=== PATIENT | male | born 1995 | race Caucasian/White ===

== ENCOUNTER → 2020-04-12 12:53 | Outpatient (BNVA) | payer OTHER, SELFPAY | PROVIDERS: PCP Pediatrics; Visit Provider Internal Medicine | DX: S93.401A Sprain of unspecified ligament of right ankle, initial encounter (principal); W01.0XXA Fall on same level from slipping, tripping and stumbling without subsequent striking against object, initial encounter | CPT/HCPCS: 73610; 99203 ==

== ENCOUNTER → 2020-04-18 11:20 | Outpatient (BNVA) | payer OTHER, SELFPAY | PROVIDERS: PCP Pediatrics; Visit Provider Internal Medicine | DX: S93.401A Sprain of unspecified ligament of right ankle, initial encounter (principal); W01.0XXA Fall on same level from slipping, tripping and stumbling without subsequent striking against object, initial encounter | CPT/HCPCS: 99213 ==

== ENCOUNTER → 2020-04-25 10:55 | Outpatient (BNVA) | payer OTHER, SELFPAY | PROVIDERS: PCP Pediatrics; Visit Provider Internal Medicine | DX: S93.401D Sprain of unspecified ligament of right ankle, subsequent encounter (principal); X58.XXXD Exposure to other specified factors, subsequent encounter | CPT/HCPCS: 99213 ==

== ENCOUNTER → 2020-05-02 11:08 | Outpatient (BNVA) | payer OTHER, SELFPAY | PROVIDERS: PCP Pediatrics; Visit Provider Internal Medicine | DX: S93.401D Sprain of unspecified ligament of right ankle, subsequent encounter (principal); X58.XXXD Exposure to other specified factors, subsequent encounter | CPT/HCPCS: 99213 ==

== ENCOUNTER 2020-10-27 18:29 | Emergency (ER) | payer OTHER, SELFPAY ==
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
[2020-10-27 18:34] VITALS: BP 136/90; BP 143/79; PULSE 110; PULSE 119; RESP 18; TEMP 36.6; O2SAT 98; BMI 27.1
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
[2020-10-27] MEDS: Lidocaine HCl 2 % MPF 5 ML VIAL SUBCUT (19:46)
== END 2020-10-27 19:20 | disposition home or self-care (01) ==
PROVIDERS: Emergency Provider Emergency Medicine; PCP Internal Medicine
DX: S01.112A Laceration without foreign body of left eyelid and periocular area, initial encounter (principal); S06.0X0A Concussion without loss of consciousness, initial encounter; Y04.2XXA Assault by strike against or bumped into by another person, initial encounter; Y93.9 Activity, unspecified; Y92.89 Other specified places as the place of occurrence of the external cause; Y99.0 Civilian activity done for income or pay
CPT/HCPCS: 12013; 70140; 99284

== ENCOUNTER → 2020-10-31 08:34 | Outpatient (BNVA) | payer OTHER, SELFPAY | PROVIDERS: PCP Internal Medicine; Visit Provider Internal Medicine | DX: S01.112A Laceration without foreign body of left eyelid and periocular area, initial encounter (principal); W50.0XXA Accidental hit or strike by another person, initial encounter; F07.81 Postconcussional syndrome | CPT/HCPCS: 99202 ==

== ENCOUNTER → 2020-11-02 08:00 | Outpatient (BNVA) | payer OTHER, SELFPAY | PROVIDERS: PCP Internal Medicine; Visit Provider Internal Medicine | DX: S01.112A Laceration without foreign body of left eyelid and periocular area, initial encounter (principal); W50.0XXA Accidental hit or strike by another person, initial encounter | CPT/HCPCS: 99213 ==

== ENCOUNTER 2020-11-28 17:00 | Outpatient (RCR) | payer OTHER, SELFPAY ==
--- NOTE | 2020-11-09 11:42 | MHC.PT.EP ---
[facility] [place] Office [place] Office [place] Office [address] Manohar Gibson [address] [phone] F: [phone] F: [phone] F: [phone] F: [phone] Physical Therapy Plan of Care Date of Evaluation: Date of Surgery: N/A Diagnosis: sprain of L shoulder Assessment: 25 y/o RHD male referred for sprain of L shoulder with s/sx consistent with postural dysfunction leading to L GH irritation and possible RTC involvement. Pt complains of pain and discomfort with weighted pushing motions including bench press and overhead press. Examination shows R dominant UT musculature, forward head and rounded shoulder posture, TTP L pectoralis musculature, (+) empty can test indicated by discomfort at end range, painful active L shoulder IR, and painful resisted ER. Recommend PT 2x/week for 5 weeks to address impairments, implement HEP, and optimize functional mobility. Pt only able to attend 1x/week d/t scheduling. Frequency and Duration: The patient will be seen 2x/week for 5 weeks Short Term Goals: 2 weeks: 1. I with HEP 2. Pt will improve L shoulder ER by 1 MMT score to promote improved strength of scapular/shoulder musculature Halfway Goals: weeks: 1. I with HEP and self-management of sx 2. Pt will be able to press >50# overhead with <3/10 pain to promote return to prior exercise routine 3. Pt will be able to chest press >75# with <3/10 pain to promote return to prior exercise routine Treatment Plan: Modalities to reduce pain, spasms and effusion. Manual therapy to restore motion and function. Therapeutic exercise to improve strength and flexibility. Neuromuscular re-education for posture and balance. Therapeutic activities to return to functional activities of daily living. Electronically signed by: Larry Lamas PT Please sign and return to therapist. Thank you for your referral.
--- NOTE | 2020-11-28 18:03 | MHC.PT.DC ---
[facility] [place] Office [place] Office [place] Office [address] Manohar Gibson [address] [phone] F: [phone] F: [phone] F: [phone] F: [phone] Physical Therapy Discharge Report Diagnosis: sprain of L shoulder Date of Surgery: N/A Date of Evaluation: 11/09/20 Date of Discharge: 11/28/20 Treatments to Date: 3 Cancellations to Date: 0 No Shows to Date: 0 Discharge Status: Achieved Goals Improved Function Independent with HEP Discharge Summary: 11/28: pt shows evidence of HEP compliance. pt performed all the ther/ex w/o pain or discomfort. pt was initially referred to PT for eval/treat of his L sh pain, upon examination postural dysfunction was noted. W/in 3 visit to pt, all of his physical impairments were addressed and improved his functional abilities. Pt was able to achieve all of his goals. pt and PT both in agreement for DC. pt is recommended to cont following HEP and progressing w/ knowledge gained at PT. Electronically signed by: Jorden Yeager PT Please sign and return to therapist. Thank you for your referral.
== END 2020-11-28 18:04 | disposition home or self-care (01) ==
LOC: HO.PTCHIC 17:00
PROVIDERS: PCP Internal Medicine; Visit Provider Internal Medicine
DX: S43.402A Unspecified sprain of left shoulder joint, initial encounter (principal)
CPT/HCPCS: 97110; 97161

== ENCOUNTER → 2021-03-01 09:59 | Outpatient (BNVA) | payer OTHER, SELFPAY | PROVIDERS: PCP Internal Medicine; Visit Provider Internal Medicine | DX: F07.81 Postconcussional syndrome (principal) | CPT/HCPCS: 99214 ==

== ENCOUNTER 2021-03-06 19:16 | Outpatient (REF) | payer OTHER, SELFPAY ==
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
== END 2021-03-06 19:17 | disposition home or self-care (01) ==
LOC: HO.MRI 19:16
PROVIDERS: Visit Provider Internal Medicine
DX: R41.0 Disorientation, unspecified (principal)
CPT/HCPCS: 70551

== ENCOUNTER → 2021-03-08 11:25 | Outpatient (BNVA) | payer OTHER, SELFPAY | PROVIDERS: PCP Internal Medicine; Visit Provider Internal Medicine | DX: F07.81 Postconcussional syndrome (principal) | CPT/HCPCS: 99213 ==

== ENCOUNTER → 2021-03-15 13:01 | Outpatient (BNVA) | payer OTHER, SELFPAY | PROVIDERS: PCP Internal Medicine; Visit Provider Internal Medicine | DX: F07.81 Postconcussional syndrome (principal); R51.9 Headache, unspecified | CPT/HCPCS: 99213 ==

== ENCOUNTER → 2021-04-10 10:13 | Outpatient (BNVA) | payer OTHER, SELFPAY | PROVIDERS: PCP Internal Medicine; Visit Provider Internal Medicine | DX: F07.81 Postconcussional syndrome (principal); F43.10 Post-traumatic stress disorder, unspecified; Y04.2XXD Assault by strike against or bumped into by another person, subsequent encounter | CPT/HCPCS: 99214 ==

== ENCOUNTER → 2021-04-26 11:20 | Outpatient (BNVA) | payer OTHER, SELFPAY | PROVIDERS: PCP Internal Medicine; Visit Provider Internal Medicine | DX: S06.0X0D Concussion without loss of consciousness, subsequent encounter (principal); Y04.2XXD Assault by strike against or bumped into by another person, subsequent encounter; F43.10 Post-traumatic stress disorder, unspecified | CPT/HCPCS: 99213 ==

== ENCOUNTER → 2021-04-27 14:48 | Outpatient (BNVA) | payer OTHER, SELFPAY | PROVIDERS: PCP Internal Medicine; Visit Provider Nurse Practitioner Family ==

== ENCOUNTER → 2021-05-04 11:05 | Outpatient (BNVA) | payer OTHER, SELFPAY | PROVIDERS: PCP Internal Medicine; Visit Provider Internal Medicine | DX: F07.81 Postconcussional syndrome (principal) | CPT/HCPCS: 99213 ==

== ENCOUNTER → 2021-05-15 10:04 | Outpatient (BNVA) | payer OTHER, SELFPAY | PROVIDERS: PCP Internal Medicine; Visit Provider Internal Medicine | DX: F07.81 Postconcussional syndrome (principal) | CPT/HCPCS: 99213 ==

== ENCOUNTER → 2021-05-29 10:41 | Outpatient (BNVA) | payer OTHER, SELFPAY | PROVIDERS: PCP Internal Medicine; Visit Provider Internal Medicine | DX: S06.0X0D Concussion without loss of consciousness, subsequent encounter (principal); W50.0XXD Accidental hit or strike by another person, subsequent encounter | CPT/HCPCS: 99213 ==

== ENCOUNTER 2021-06-11 22:43 | Emergency (ER) | payer OTHER, SELFPAY ==
[2021-06-11 22:45] VITALS: BP 146/96; PULSE 98; RESP 18; TEMP 37; O2SAT 100; BMI 29.1
[2021-06-11 23:13] LABS: MANUAL DIFF FLAG NO
[2021-06-11 23:14] LABS: Basophils Absolute Auto 0.1 X10*3/uL (0.0-0.2); Basophils Percent Auto 0.5 % (0-2); Eosinophils Absolute Auto 0.3 X10*3/uL (0.0-0.4); Eosinophils Percent Auto 2.9 % (0-4); Hematocrit 44.1 % (42.0-52.0); Hemoglobin 15.1 g/dl (14.0-18.0); Imm Gran Abs Auto 0.02 X10*3/uL (0.00-0.03); Imm Gran Pct Auto 0.2 % (0.0-0.4); Lymphocytes Absolute Auto 3.2 X10*3/uL (1.2-4.9); Lymphocytes Percent Auto 34.9 % (20-40); Mean Corpuscular HGB Conc 34.2 g/dl (31.0-36.0); Mean Corpuscular Hemoglobin 28.7 pg (27.0-33.0); Mean Corpuscular Volume 83.8 fL (80.0-98.0); Mean Platelet Volume 10.4 fL (9.4-12.4); Monocytes Absolute Auto 0.5 X10*3/uL (0.1-1.2); Monocytes Percent Auto 5.7 % (2-11); Neutrophils Absolute Auto 5.1 x10*3/uL (2.0-8.3); Neutrophils Percent Auto 55.8 % (45-73); Platelet Count 232 X10*3/uL (160-400); Red Blood Count 5.26 X10*6/uL (4.60-5.80); Red Cell Distribution Width 11.9 % (11.0-16.0); White Blood Count 9.1 X10*3/uL (4.8-10.8)
[2021-06-11 23:36] LABS: Alanine Aminotransferase 40 U/L (0-40); Albumin Level 4.4 g/dL (3.5-5.0); Alkaline Phosphatase 90 U/L (39-117); Anion Gap 13 (12-20); Aspartate Amino Transferase 31 U/L (5-37); Bilirubin Direct < 0.2 mg/dL (0.0-0.5); Bilirubin Total 0.3 mg/dL (0.0-1.0); Blood Urea Nitrogen 14 mg/dL (9-16); Calcium 9.2 mg/dL (8.4-10.2); Carbon Dioxide 25 mmol/L (22-29); Chloride 105 mmol/L (96-108); Creatinine Clr Calc Pharmacy 106.7; Estimated Glomerular Filt Rate > 60; Glucose Random 102 mg/dL (60-115); Lipase 25 U/L (8-78); Potassium 3.9 mmol/L (3.3-5.1); Sodium 139 mmol/L (135-145); Total Protein 7.3 g/dL (6.5-8.0)
[2021-06-11] MEDS: Post Exposure Medication Kit 1 KIT PO (23:42)
--- NOTE | 2021-06-11 23:47 | PC.NURSE ---
PEP STARTED. KIT GIVEN. PT AWARE TO ATTEMPT TO GET SOURCE DRAWN. F/U [facility] TOMORROW.
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
[2021-06-12 01:00] LABS: Amylase 67 U/L (28-100)
[2021-06-13 08:21] LABS: HBS Num1 20.99 mIU/mL (0-7.99); HBc Num1 0.09 S/CO (0.00-0.79); Hepatitis B Core Antibody Nonreactive (Nonreactive); ~HepC Num1 0.05 S/CO (0.00-0.79); ~Hepatitis B Surface Antibody REACTIVE (Nonreactive); ~Hepatitis C Antibody Nonreactive (Nonreactive)
[2021-06-13 09:17] LABS: HIV AB/AG Nonreactive (Nonreactive); HIV Num 1 0.04 S/CO (0.00-0.99); Hepatitis B Surface Antigen Negative (Negative)
== END 2021-06-12 00:29 | disposition home or self-care (01) ==
PROVIDERS: Physician Assistant; Emergency Provider Internal Medicine
DX: Z04.2 Encounter for examination and observation following work accident (principal); Z77.21 Contact with and (suspected) exposure to potentially hazardous body fluids
CPT/HCPCS: 36415; 80048; 80076; 82150; 83690; 85025; 86704; 86706; 86803; 87340; 87389; 99283

== ENCOUNTER → 2021-06-13 09:10 | Outpatient (BNVA) | payer OTHER, SELFPAY | PROVIDERS: Visit Provider Physician Assistant | DX: Z77.21 Contact with and (suspected) exposure to potentially hazardous body fluids (principal) | CPT/HCPCS: 99204 ==

== ENCOUNTER → 2021-06-15 11:12 | Outpatient (BNVA) | payer OTHER, SELFPAY | PROVIDERS: Visit Provider Physician Assistant | DX: Z77.21 Contact with and (suspected) exposure to potentially hazardous body fluids (principal) | CPT/HCPCS: 99213 ==

== ENCOUNTER 2021-08-04 02:15 | Emergency (ER) | payer OTHER, SELFPAY ==
[2021-08-04 02:29] VITALS: BP 128/77; PULSE 65; RESP 18; TEMP 36.8; O2SAT 96; BMI 28.5
[2021-08-04 03:05] VITALS: BP 109/71; PULSE 65; RESP 14; O2SAT 96
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
[2021-08-04] MEDS: Acetaminophen 325 MG TABLET 975 MG PO (06:27)
[2021-08-04] MEDS: Ibuprofen 400 MG TABLET PO (06:27)
--- NOTE | 2021-08-04 06:28 | PC.NURSE ---
Reviewed discharge instructions. medicated per may. Pt verbalized understanding.
== END 2021-08-04 06:30 | disposition home or self-care (01) ==
PROVIDERS: Emergency Provider Student in an Organized Health Care Education/Training Program; PCP Internal Medicine
DX: Z04.1 Encounter for examination and observation following transport accident (principal); M79.18 Myalgia, other site
CPT/HCPCS: 99283; 99284

== ENCOUNTER → 2021-08-16 09:25 | Outpatient (BNVA) | payer OTHER, SELFPAY | PROVIDERS: PCP Internal Medicine; Visit Provider Internal Medicine | DX: S46.811A Strain of other muscles, fascia and tendons at shoulder and upper arm level, right arm, initial encounter (principal); S63.601A Unspecified sprain of right thumb, initial encounter; V89.0XXA Person injured in unspecified motor-vehicle accident, nontraffic, initial encounter | CPT/HCPCS: 99202 ==

== ENCOUNTER → 2021-08-31 12:56 | Outpatient (BNVA) | payer OTHER, SELFPAY | PROVIDERS: PCP Internal Medicine; Visit Provider Internal Medicine | DX: S63.601D Unspecified sprain of right thumb, subsequent encounter (principal); S46.812D Strain of other muscles, fascia and tendons at shoulder and upper arm level, left arm, subsequent encounter; V89.2XXD Person injured in unspecified motor-vehicle accident, traffic, subsequent encounter | CPT/HCPCS: 99213 ==

== ENCOUNTER 2022-04-22 09:02 | Outpatient (REF) | payer OTHER, SELFPAY ==
--- NOTE | ~2022-04-22 | US_ITS ---
EXAMINATION: US ABDOMEN COMPLETE CLINICAL INFORMATION: Right upper quadrant pain. COMPARISON: None. TECHNIQUE: Real-time imaging of the abdominal viscera. FINDINGS: PANCREAS: The pancreas appears unremarkable, without masses or ductal dilatation, with the exception of the tail which is obscured by bowel gas. ABDOMINAL AORTA: The proximal and distal abdominal aorta appear normal. The midabdominal aorta is obscured by bowel gas. INFERIOR VENA CAVA: Visualized portions are normal. LIVER: The liver is normal in size. The liver contour is normal. There is diffuse increased liver parenchymal echogenicity, consistent with hepatic steatosis. No focal hepatic lesion. There is no intrahepatic biliary duct dilatation seen. GALLBLADDER: The gallbladder is physiologically distended without evidence of stones, sludge, polyps, wall thickening or pericholecystic fluid. COMMON BILE DUCT: Normal in caliber measuring 0.4 cm in diameter. RIGHT KIDNEY: No hydronephrosis. No renal calculi or focal parenchymal lesions. The kidney measures 11.1 cm in maximum dimension. LEFT KIDNEY: No hydronephrosis. No renal calculi or focal parenchymal lesions. The kidney measures 10.9 cm in maximum dimension. SPLEEN: Normal. The spleen measures 10.2 cm in maximum dimension. FREE FLUID: None. US/US abdomen complete IMPRESSION: Hepatic steatosis.
== END 2022-04-22 09:03 | disposition home or self-care (01) ==
LOC: HO.US 09:02
PROVIDERS: PCP Internal Medicine; Visit Provider Internal Medicine
DX: R10.11 Right upper quadrant pain (principal)
CPT/HCPCS: 76700

== ENCOUNTER 2022-07-24 09:46 | Outpatient (REF) | payer OTHER, SELFPAY ==
[2022-07-26 02:04] LABS: Herpes Simplex Type 1 IgG <0.90 index; Herpes Simplex Type 2 IgG <0.90 index
== END 2022-07-24 09:47 | disposition home or self-care (01) ==
LOC: HO.HMGCLDS 09:46
PROVIDERS: PCP Internal Medicine; Visit Provider Nurse Practitioner Family
DX: N50.89 Other specified disorders of the male genital organs (principal); Z91.89 Other specified personal risk factors, not elsewhere classified
CPT/HCPCS: 36415; 86695; 86696

== ENCOUNTER 2023-03-20 10:06 | Outpatient (AMB) | payer OTHER, SELFPAY ==
[2023-03-20 10:15] VITALS: BP 120/80; PULSE 61; O2SAT 98; BMI 28.9
--- NOTE | 2023-03-20 10:15 | A.OFFPC_ITS ---
Vital Signs 03/20/23 10:15 Height 5 ft 7 in Weight 184 lb 6 oz BMI 28.9 BP 120/80 Blood Pressure Location Lt brachial Position Sitting Pulse 61 Pulse Source Pulse Oximeter Pulse Oximetry (%) 98 Oxygen Delivery Method Room Air Intake Visit Reasons: Annual Exam Family Engagement Specialist Required: No Accompanied by: Self / Same As Patient Allergies environmental allergies Allergy (Intermediate, Uncoded 03/20/23 10:52) runny nose, sneezing Medication List - Last Reconciled 03/20/23 by Edison Hsu MD No Known Home Meds Tobacco use date assessed: 08/05/22 Dental Screening Dental Screen Date: 03/20/23 Did you have a dental visit in the last 12 months?: No Did you have a dental problem in the last 6 months where you did not have access to dental care?: No Was dental information given to patient?: Patient has dentist HPI Annual Exam HPI Details Patient comes in today for his annual physical examination States that he feels okay He denies any headaches or dizziness Denies any chest pains, no SOB No nausea/vomiting, no abdominal pain No change in bowel habits noted Denies any acute urinary symptoms [facility] Medical History Left testicular torsion (~2007) Surgical History History of testicular surgery (~2007) Family History Mother High blood pressure Arthritis Father Diverticulitis Other Mental health problem Social History Housing: House Alcohol intake: current Alcohol intake frequency: a few times a month Patient Tobacco Use Status: Never used Tobacco e-Cigarette/Vaping Use: Never Used Second Hand Smoke Exposure: No service: No Current occupational status: employed Current occupation: police - [employer] Cognitive needs: No Hearing needs: No Vision needs: No Questionnaire PHQ-9 Over the last 2 weeks, how often have you been bothered by any of the following problems? 1. Little interest or pleasure in doing things: not at all 2. Feeling down, depressed, or hopeless: not at all 3. Trouble falling or staying asleep, or sleeping too much: not at all 4. Feeling tired or having little energy: not at all 5. Poor appetite or overeating: not at all 6. Feeling bad about yourself - or that you are a failure or have let yourself or your family down: not at all 7. Trouble concentrating on things, such as reading the newspaper or watching television: not at all 8. Moving or speaking so slowly that other people could have noticed. Or the opposite - being so fidgety or restless that you have been moving around a lot more than usual: not at all 9. Thoughts that you would be better off or of hurting yourself in some way: not at all Total score: 0 Depression Screening Interpretation: Negative Depression Screening Done: Yes 36912 - PHQ-9 Billing: Yes Source: Developed by Drs. Jesu Figueroa, Mer Li, Alan Kovacs and colleagues, with an educational melanie from [employer]. Thrive Questionnaire Date Thrive assessed: 03/20/23 I am a: Patient What is your living situation today?: I have a steady place to live Within the past 12 months, did the food you bought not last and you didn't have the money to get more?: Never true Within the past 12 months, did you worry whether your food would run out before you got money to buy more?: Never true Do you have trouble paying for medicines?: No Do you have trouble getting transportation to medical appointments?: No Do you have trouble paying your heating and electricity bill?: No Do you have trouble taking care of your child, family member or friend?: No Do you have trouble with day-to-day activities such as bathing, preparing meals, shopping, managing finances, etc.?: No Are you currently unemployed and looking for a job?: No Are you interested in more education?: No Currently or been in a relationship where the following occur: no concerns reported AUDIT C Alcohol Use Questionnaire (AUDIT-C) 1. How often do you have a drink containing alcohol?: 2-4 times a month 2. How many drinks containing alcohol do you have on a typical day when you are drinking?: 1 or 2 3. How often do you have six or more drinks on one occasion?: Never Total Score: 2 Score Reviewed/Action Taken: Yes COOPER-7 AMB Questionnaire COOPER-7 Date COOPER - 7 assessed: 08/05/22 Source: Developed by Drs. Jesu Figueroa, Mer Li, Alan Kovacs and colleagues, with an educational melanie from [email or web address]. Review of Systems Const Denies chills, Denies fatigue, Denies fever(s), Denies headache(s), Denies malaise and Denies weakness Eyes Denies blurry vision, Denies change in vision, Denies irritation and Denies itchy eyes ENT Denies dysphagia, Denies dizziness, Denies otalgia, Denies headache(s), Denies nasal congestion, Denies neck pain, Denies odynophagia and Denies sore throat Card Denies chest pain, Denies rapid heart rate, Denies irregular heart rhythm, Denies palpitations and Denies dyspnea Resp Denies chest congestion, Denies cough, Denies dyspnea and Denies wheezing GI Denies abdominal pain, Denies bloating, Denies constipation, Denies dysphagia, Denies heartburn, Denies diarrhea, Denies nausea, Denies odynophagia and Denies vomiting Denies hematuria, Denies difficulty urinating, Denies dysuria, Denies urinary frequency and Denies urinary urgency Musc Denies back pain, Denies arthralgias, Denies joint swelling, Denies muscle weakness and Denies neck pain Skin/Breast Denies change in pigmentation, Denies lesions, Denies rash and Denies unusual bruising Neuro Denies dizziness, Denies headache(s), Denies paresthesias and Denies weakness Endo Denies fatigue and Denies palpitations Aller/Immun Denies itchy eyes and Denies wheezing Physical exam (Primary Care) Vital Signs: Last Vital Signs Pulse 61 03/20/23 10:15 BP 120/80 03/20/23 10:15 Pulse Ox 98 03/20/23 10:15 Oxygen Delivery Method Room Air 03/20/23 10:15 BMI result Body Mass Index 28.9 Tobacco/Smoking Status: Tobacco use Status Tobacco use date assessed 08/05/22 03/20/23 10:20 Patient Tobacco Use Status Never used Tobacco 03/20/23 10:20 e-Cigarette/Vaping Use Never Used 03/20/23 10:20 Depression Screening Interpretation: Negative Thrive Assessment: Date of Thrive Assessment Date Thrive assessed 08/05/22 03/20/23 10:20 Currently or been in a relationship where the following occur: no concerns reported Const General: no acute distress, alert and awake Orientation/consciousness: patient oriented x3 HENMT Head: Yes normocephalic and Yes atraumatic Ears: external ears normal, TM's normal bilaterally and EAC's normal General nose exam: No nasal discharge present Face and sinus: Yes normal facial exam and Yes sinuses nontender Teeth and gingiva: dentition normal Throat: Yes posterior oropharynx normal and Yes tonsils normal (no TP congestion) Eyes Eyelids: Yes eyelids normal Conjunctivae: conjunctivae normal Pupils: Equal, round and reactive pupils present EOM: EOMs intact bilaterally Neck Neck: Yes no lymphadenopathy and Yes supple Thyroid: Thyroid normal Resp Auscultation: clear to auscultation bilaterally, no rales and no wheezes Cardio Rate: regular rate Rhythm: regular rhythm Heart sounds: no murmurs GI Palpation (GI): Soft to palpation, nontender and No hepatosplenomegaly present Auscultation: normal bowel sounds General: Yes no CVA tenderness Back/Spine/Pelvis Back: no CVA tenderness Thoracic/Lumbar Spine: thoracic and lumbar spine normal to inspection Skin Lesions: no lesions Rashes: no rashes Neuro General: patient oriented x3, moves all extremities, no focal motor deficits and CN's II-XI intact bilaterally Cranial nerves: Yes Equal, round and reactive pupils present Cognition (Neuro): normal cognition Gait exam (Neuro): Normal gait present Extrem General: Yes no clubbing, cyanosis or edema Assessment and Plan Assessment & Plan (1) Annual physical exam: Code(s): Z00.00 - Encounter for general adult medical examination without abnormal findings Plan: Check labs (2) Overweight (BMI 25.0-29.9): Code(s): E66.3 - Overweight Plan: Reinforced diet/exercise as tolerated/lose weight Plan To return in 1 year for his next annual physical examination Orders: Orders Complete Blood Count Auto Diff Today Z00.00 - Encounter for general adult medical examination without abnormal findings Lipid Panel Today E78.00 - Pure hypercholesterolemia, unspecified, Z00.00 - Encounter for general adult medical examination without abnormal findings TSH reflex Free T4 Today E78.00 - Pure hypercholesterolemia, unspecified, Z00.00 - Encounter for general adult medical examination without abnormal findings UA CC w/rflx Micro + Cult Today R30.0 - Dysuria, Z00.00 - Encounter for general adult medical examination without abnormal findings Vitamin D 25-OH Total Today E55.9 - Vitamin D deficiency, unspecified, Z00.00 - Encounter for general adult medical examination without abnormal findings Comprehensive [place]. Panel Fast Today Z00.00 - Encounter for general adult medical examination without abnormal findings Coding Level of Care Code Est Pt Prev Care 18-39y(38024) Diagnoses Annual physical exam Z00.00 Overweight (BMI 25.0-29.9) E66.3
== END 2023-03-20 10:52 | disposition home or self-care (01) ==
PROVIDERS: Visit Provider Internal Medicine
DX: Z00.00 Encounter for general adult medical examination without abnormal findings (principal); E66.3 Overweight
CPT/HCPCS: 99395

== ENCOUNTER 2023-03-20 10:58 | Outpatient (REF) | payer OTHER, SELFPAY ==
[2023-03-20 11:10] LABS: MANUAL DIFF FLAG NO
[2023-03-20 11:38] LABS: Basophils Percent Auto 0.5 % (0-2); Eosinophils Absolute Auto 0.1 X10*3/uL (0.0-0.4); Eosinophils Percent Auto 0.8 % (0-4); Hematocrit 46.5 % (42.0-52.0); Hemoglobin 15.5 g/dl (14.0-18.0); Imm Gran Abs Auto 0.03 X10*3/uL (0.00-0.03); Imm Gran Pct Auto 0.3 % (0.0-0.4); Lymphocytes Absolute Auto 2.5 X10*3/uL (1.2-4.9); Lymphocytes Percent Auto 28.9 % (20-40); Mean Corpuscular HGB Conc 33.3 g/dl (31.0-36.0); Mean Corpuscular Hemoglobin 28.5 pg (27.0-33.0); Mean Corpuscular Volume 85.5 fL (80.0-98.0); Mean Platelet Volume 10.2 fL (9.4-12.4); Monocytes Absolute Auto 0.6 X10*3/uL (0.1-1.2); Monocytes Percent Auto 7.3 % (2-11); Neutrophils Absolute Auto 5.4 x10*3/uL (2.0-8.3); Neutrophils Percent Auto 62.2 % (45-73); Platelet Count 269 X10*3/uL (160-400); Red Blood Count 5.44 X10*6/uL (4.60-5.80); Red Cell Distribution Width 12.4 % (11.0-16.0); White Blood Count 8.6 X10*3/uL (4.8-10.8)
[2023-03-20 12:29] LABS: Alanine Aminotransferase 40 U/L (0-40); Albumin Level 4.6 g/dL (3.5-5.0); Alkaline Phosphatase 76 U/L (39-117); Anion Gap 12 (12-20); Aspartate Amino Transferase 27 U/L (5-37); Bilirubin Total 0.6 mg/dL (0.0-1.0); Blood Urea Nitrogen 11 mg/dL (9-16); Calcium 9.7 mg/dL (8.4-10.2); Carbon Dioxide 30 mmol/L (22-29); Chloride 103 mmol/L (96-108); Cholesterol 131 mg/dL (<200); Estimated Glomerular Filt Rate > 60; Glucose Fasting 91 mg/dL (60-99); HDL Cholesterol 44 mg/dL (>40); LDL Cholesterol Calculated 72 mg/dL (<100); Sodium 141 mmol/L (135-145); Triglycerides 77 mg/dL (<150)
[2023-03-20 12:37] LABS: Appearance Urine Clear; Color Urine Yellow; Glucose Urine UA Negative (Negative); Leukocyte Esterase Urine Negative (Negative); Nitrite Urine Negative (Negative); Urine Blood Negative (Negative); Urine Ketones Negative (Negative); Urine Protein Negative (Neg-Trace)
[2023-03-20 12:47] LABS: TSH reflex Free T4 1.12 uIU/mL (0.32-4.0); Vitamin D 25-OH Total 40.3 ng/mL (>30)
== END 2023-03-20 10:59 | disposition home or self-care (01) ==
LOC: HO.LAB 10:58
PROVIDERS: PCP Internal Medicine; Visit Provider Internal Medicine
DX: Z00.00 Encounter for general adult medical examination without abnormal findings (principal); E55.9 Vitamin D deficiency, unspecified; R30.0 Dysuria; E78.00 Pure hypercholesterolemia, unspecified
CPT/HCPCS: 36415; 80053; 80061; 81003; 82306; 84443; 85025

== ENCOUNTER 2023-05-09 10:18 | Outpatient (AMB) | payer OTHER, SELFPAY ==
--- NOTE | 2023-05-09 10:59 | MHC.OFFWIV ---
Intake Vital Signs 05/09/23 11:00 Height 5 ft 7 in Weight 182 lb BMI 28.5 BP 112/68 Blood Pressure Location Lt brachial Position Sitting Pulse 85 Pulse Source Pulse Oximeter Temp 98.5 F Temp Source Temporal Artery Scan Pulse Oximetry (%) 98 Oxygen Delivery Method Room Air Intake Visit Reasons: EP Chest Congestion/Sinus (masked) Intake Note: pt is here today for chest congestion sinus started 04/28 Patient Tobacco Use Status: Never used Tobacco Allergies environmental allergies Allergy (Intermediate, Uncoded 03/20/23 10:52) runny nose, sneezing Do you need a note to return to daycare/school/sports/work: No HPI HPI Comments History of Present Illness Details 28 y/o male patient presents to walk in clinic with c/o cough, sinus pressure and chest congestion since 04/28. He has been taking OTC medications with minimal relief. Reports mild fevers at home. Denies N/V. [facility] Medical History Left testicular torsion (~2007) Surgical History History of testicular surgery (~2007) Family History Mother High blood pressure Arthritis Father Diverticulitis Other Mental health problem Social History Housing: House Alcohol intake: current Alcohol intake frequency: a few times a month Patient Tobacco Use Status: Never used Tobacco e-Cigarette/Vaping Use: Never Used Second Hand Smoke Exposure: No service: No Current occupational status: employed Current occupation: police - [employer] Cognitive needs: No Hearing needs: No Vision needs: No Review of Systems Const All systems reviewed & are unremarkable except as noted in HPI and below Physical Exam Vital Signs: Last Vital Signs Temp 98.5 F 05/09/23 11:00 Pulse 85 05/09/23 11:00 BP 112/68 05/09/23 11:00 Pulse Ox 98 05/09/23 11:00 Oxygen Delivery Method Room Air 05/09/23 11:00 BMI result Body Mass Index 28.5 Const General: comfortable and no acute distress HEENT Head: Yes normocephalic Ears: external ears normal and TM's normal bilaterally General nose exam: Abnormal mucous membranes and turbinates present boggy and erythematous and Nasal discharge present Face and sinus: Yes sinuses nontender Mouth: tongue normal and moist mucous membranes Throat: Yes posterior oropharynx normal and Yes uvula midline Resp Effort & Inspection: normal respiratory effort, Actively coughing and no use of accessory muscles Auscultation: no crackles, no rales, no rhonchi and wheezes (clears out with coughing) Cardio Rate: regular rate Rhythm: regular rhythm Assessment & Plan Assessment & Plan (1) Cough in adult: Code(s): R05.9 - Cough, unspecified Plan: - Rest - Warm fluids - Acetaminophen for pain - OTC cold/cough remedies. Orders: Orders SARS-CoV2/FLU/RSV Today R05.9 - Cough, unspecified Medications: New benzonatate 100 mg PO TID 30 caps 0RF R05.9 - Cough, unspecified azithromycin 500 mg PO DAILY 5 days 5 tabs 0RF R05.9 - Cough, unspecified Coding Level of Care Code Est Pt Level 3 (27481) Diagnoses Cough in adult R05.9 Time Spent (min) 15
[2023-05-09 11:00] VITALS: BP 112/68; PULSE 85; TEMP 36.9; O2SAT 98; BMI 28.5
== END 2023-05-09 11:56 | disposition home or self-care (01) ==
PROVIDERS: PCP Internal Medicine; Visit Provider Nurse Practitioner Family
DX: R05.9 Cough, unspecified (principal)
CPT/HCPCS: 99213

== ENCOUNTER 2023-05-09 13:35 | Outpatient (REF) | payer OTHER, SELFPAY ==
[2023-05-09 14:31] LABS: Influenza A PCR NEGATIVE (Negative); Influenza B PCR NEGATIVE (Negative); Resp Syncy Virus RNA Qual PCR NEGATIVE (Negative); SARS COV2 PCR INHOUSE NEGATIVE (Negative)
== END 2023-05-09 13:36 | disposition home or self-care (01) ==
LOC: HO.LNP 13:35
PROVIDERS: Visit Provider Nurse Practitioner Family
DX: Z11.52 Encounter for screening for COVID-19 (principal); Z20.822 Contact with and (suspected) exposure to COVID-19; R05.9 Cough, unspecified
CPT/HCPCS: 0241U

== ENCOUNTER 2023-08-31 16:26 | Emergency (ER) | payer OTHER, SELFPAY ==
--- NOTE | ~2023-08-31 | XR_ITS ---
EXAMINATION: XR LUMBOSACRAL SPINE CLINICAL INFORMATION: Injury. COMPARISON: None available. TECHNIQUE: Three views of the lumbosacral spine. FINDINGS: There is normal lumbar lordosis. The vertebral heights, alignment and disc heights are normal. There is no visible acute fracture, dislocation or subluxation seen. The paravertebral soft tissues are normal. SI joints are normal. XR/XR lumbar spine 2-3V IMPRESSION: Unremarkable lumbar spine exam.
[2023-08-31 16:28] VITALS: BP 131/84; PULSE 110; RESP 16; TEMP 37; O2SAT 97; BMI 28.9
[2023-08-31 18:00] VITALS: BP 117/67; PULSE 108; TEMP 38.9; O2SAT 98
--- NOTE | 2023-08-31 18:10 | ED_ITS ---
HPI - Back Pain/Injury General Chief Complaint: Back Pain/Injury Stated Complaint: lower back injury at work Time Seen by Provider: 08/31/23 16:41 Source: patient Mode of arrival: ambulatory Limitations: no limitations History of Present Illness HPI Narrative: Patient is a 28-year-old who presents to the emergency department for evaluation of work-related injury. Reports while duty for [employer] she was attempting to prevent a suspect from injuring himself by throwing himself down the stairs. He was standing on the bottom of the stairs, grabbed hold of the suspect pushing upwards /forward. He felt a pop in the lower back with sudden onset of a flash of severe pain. Pain gradually improved, but is still present this time. Described as 1-2/10 in as a reported discomfort. Denies recent fevers, chills, burning with micturition, urinary frequency/urgency/hesitancy, bladder or bowel dysfunction, numbness or tingling of the perineum or bilateral legs. Denies any recent surgical procedures, any known immune compromising conditions, personal history of cancer, or IV drug usage. MD elicited complaint: back pain Related Data Previous Rx's ?Medication ?Instructions ?Recorded azithromycin 500 mg tablet 500 mg PO DAILY 5 days #5 tabs 05/09/23 benzonatate 100 mg capsule 100 mg PO TID #30 caps 05/09/23 Allergies Allergy/AdvReac Type Severity Reaction Status Date / Time environmental allergies Allergy Intermediate runny Uncoded 08/31/23 16:29 nose, sneezing Review of Systems Review of Systems: Yes all other systems are reviewed and are negative PMFSH Past Medical History Attestation statement: The following information was validated with the patient. Source: old records reviewed Medical History Left testicular torsion (~2007) Surgical History History of testicular surgery (~2007) Family History Family History Mother High blood pressure Arthritis Father Diverticulitis Other Mental health problem Social History Social History Housing: House Alcohol intake: current Alcohol intake frequency: a few times a month Patient Tobacco Use Status: Never used Tobacco e-Cigarette/Vaping Use: Never Used Second Hand Smoke Exposure: No Advance Directives: No Advance Directives Information Provided: No Do you have a plan to hurt others: No Plan service: No Current occupational status: employed Current occupation: police - [employer] Cognitive needs: No Hearing needs: No Vision needs: No Physical Exam Vital Signs: Vital Signs: Last Vital Signs Temp 99.8 F 08/31/23 21:06 Pulse 96 08/31/23 21:06 Resp 16 08/31/23 21:06 BP 120/82 08/31/23 21:06 Pulse Ox 97 08/31/23 21:06 O2 Del Method Room Air 08/31/23 21:06 BMI result Body Mass Index 28.9 Appearance: Alert.?Oriented to person, place and time. No acute distress.?Normal affect. Eyes: Pupils equal, round and reactive to light.? ENT: Pharynx normal.?? Neck: Normal inspection.? Neck supple.?? CVS: Heart sounds normal. Normal heart rate and rhythm.? Pulses normal; bilateral radial pulses 2+, bilateral posterior tibial/dorsalis pedis pulses 2+.? Respiratory: No respiratory distress.? Lung sounds clear to auscultation bilaterally?? Abdomen: Soft and non-tender. Normoactive bowel sounds. ?? Skin: Skin warm and dry.? Normal skin color.? Extremities: No lower extremity edema.? No calf ttp? Back: + mild paraspinal muscular tenderness from lumbar region to coccyx, Tenderness upon palpation L3-S1. No CVA tenderness. No midline step-off's, or deformity. Full ROM intact in bilateral lower extremities. No rashes, lesions, areas of induration or fluctuance, or signs of infection noted., Neuro: Moves all extremities spontaneously. 5/5 strength in hip extension/flexion, abduction, adduction. Sensation to light touch intact bilaterally. Patellar and Achilles reflex 2+ bilaterally. No ataxia, gait normal and steady.. No focal neuro deficits. Course Reevaluation(s) Reevaluation #1: At the time of discharge, patient is noted to be febrile 102.1 orally, and he is mildly tachycardic. When asked, he states he has been feeling off today reports 3 bouts of loose stools, headache, he has been taking Imodium. He denies any obvious food consumption that may have brought this on. He denies URI symptoms. Denies dysuria, urinary frequency. Denies abdominal pain, nausea, vomiting. Abdominal exam benign. Patient received acetaminophen, will obtain viral panel strep testing to exclude alternative etiology for fever and tachycardia may be viral syndrome versus iritis versus food-borne illness. He adamantly denies having any back pain preceding this injury, do not suspect acute spinal infection. patient signed out to Malik CLEMONS pending results and re-eval Reevaluation #2: Patient's COVID, influenza, RSV, and strep came back normal. Patient well- appearing. Patient is not toxic appearing. Ear exam normal. Oral exam normal. Lungs are exam normal. Abdomen is benign soft and nontender. Back exam negative for spinal tenderness. Most likely patient has a viral syndrome. patient states diarrhea, fatigue, and nasal congestion. Patient explained worrisome signs and informed to return to the ED if he has them. Not suspect epidural abscess or cauda equinus. Not detecting any surgical medical abdominal etiology. Not suspecting pneumonia. Time: 20:45 Medications Administered Discontinued Medications Generic Name Dose Route Start Last Admin Trade Name Freq PRN Reason Stop Dose Admin Acetaminophen 975 mg 08/31/23 18:35 08/31/23 18:46 Acetaminophen 325 Mg Tablet PO 08/31/23 18:36 975 mg ONCE ONE Administration Medical Decision Making Medical Decision Making [facility] Narrative: patient is a 28-year-old male who presents emergency department for evaluation of low back pain after work-related injury as per HPI. discussed with patient care for obtaining XR imaging to evaluate for fracture, subluxation, discussed cannot completely exclude herniated disc. On neurological exam there are no deficits. Not consistent with spinal infection, epidural abscess, AAA, epidural abscess, or dissection. No high risk past medical history including incontinence, fever, immunosuppression, recent surgery or lumbar puncture, coagulopathy, significant trauma, recent unintentional weight loss, pulsatile mass, history of cancer, history of TB, history of IV drug use that would warrant MRI or CT. Not consistent pyelonephritis, urinary tract infection, renal calculi, appendicitis, diverticulitis. On exam no concern for cauda equina syndrome. XR is without evidence of acute pathology. Plan for discharge home with work connection follow-up, acetaminophen/ibuprofen for pain management, and patient agreed with plan. Differential Diagnosis Differential Diagnoses: The differential diagnosis associated with the presentation includes ( see narrative above) Admission/Observation Consideration of admission/observation: Escalation of care including admission/observation considered ( see narrative above) Lab Data Labs: Lab Results 08/31/23 Range/Units 18:53 Influenza Type A (PCR) NEGATIVE (Negative) Influenza Type B (PCR) NEGATIVE (Negative) RSV RNA Qual (PCR) NEGATIVE (Negative) SARS-CoV-2 RNA (RT-PCR) NEGATIVE (Negative) S. pyogenes GrpA JOY Negative (Negative) Independent Interpretation I performed an independent interpretation of an: Plain X-Ray ( no acute fracture) Radiology Impression Discussion of test interpretation with radiology: I have reviewed the radiologist's reading. Radiologist Impression: XR/XR lumbar spine 2-3V IMPRESSION: Unremarkable lumbar spine exam. Tests considered The following testing was considered but not selected: see narrative above Prescription Management I considered prescription management with: Pain Medication Discharge Plan Discharge Clinical Impression: Acute lumbar back pain, Acute viral syndrome Patient Disposition: Home, Self-Care Instructions: Acute Low Back Pain (ED), Viral Syndrome (ED) Additional Instructions: You can take ibuprofen 200 mg, 3 tablets (600mg) every 6-8 hours as needed for pain, in addition to Tylenol 500 mg, 2 tablets (1,000mg) every 4-6 hours as needed for pain, but not to exceed 3 doses daily (3,000mg).? follow-up with work connection accordingly. Return to the ED immediately for any abdominal pain, chest pain, shortness of breath, urinary/bowel incontinence, severe back pain, flank pain, dysuria, hematuria, coughing up blood, sore thro at, ear pain, or any other concerning symptoms. Prescriptions: No Action azithromycin 500 mg tablet 500 mg PO DAILY 5 Days Qty: 5 0RF benzonatate 100 mg capsule 100 mg PO TID Qty: 30 0RF Referrals: [facility] [Provider Group] Interventions: ED Discharge Assessment Last Done: 08/31/23 21:06 Discharge Date/Time: 08/31/23 21:07 Print Language: Kiswahili
[2023-08-31] MEDS: Acetaminophen 325 MG TABLET 975 MG PO (18:46)
[2023-08-31 19:18] LABS: IDNOW Serial# 08D9AD1C; Strep A Nucleic Acid Negative (Negative)
[2023-08-31 19:46] VITALS: TEMP 37.9
[2023-08-31 19:50] LABS: Influenza A PCR NEGATIVE (Negative); Influenza B PCR NEGATIVE (Negative); Resp Syncy Virus RNA Qual PCR NEGATIVE (Negative); SARS COV2 PCR INHOUSE NEGATIVE (Negative)
[2023-08-31 21:06] VITALS: BP 120/82; PULSE 96; RESP 16; TEMP 37.7; O2SAT 97
== END 2023-08-31 21:07 | disposition home or self-care (01) ==
PROVIDERS: Nurse Practitioner Family; Emergency Provider Internal Medicine; PCP Internal Medicine
DX: M54.50 Low back pain, unspecified (principal); B34.9 Viral infection, unspecified; Z03.818 Encounter for observation for suspected exposure to other biological agents ruled out
CPT/HCPCS: 0241U; 72100; 87651; 99283; 99284

== ENCOUNTER → 2023-09-02 09:23 | Outpatient (BNVA) | payer OTHER, SELFPAY | PROVIDERS: PCP Internal Medicine; Visit Provider Registered Nurse | DX: S39.012A Strain of muscle, fascia and tendon of lower back, initial encounter (principal); X50.9XXA Other and unspecified overexertion or strenuous movements or postures, initial encounter | CPT/HCPCS: 99202 ==

== ENCOUNTER 2023-09-15 09:41 | Outpatient (AMB) | payer OTHER, SELFPAY ==
--- NOTE | 2023-09-15 11:07 | AM.OFFWIN_ITS ---
Intake Vital Signs 09/15/23 11:08 Height 5 ft 6 in BP 120/70 Blood Pressure Location Rt brachial Position Sitting Pulse 76 Pulse Source Pulse Oximeter Temp 97.9 F Temp Source Oral Pulse Oximetry (%) 98 Oxygen Delivery Method Room Air Intake Visit Reasons: EP dizzy,vertigo/pain neck-ear Intake Note: pt is here for dizziness and pain neck to ear pain for about 1 week Patient Tobacco Use Status: Never used Tobacco Allergies environmental allergies Allergy (Intermediate, Uncoded 09/15/23 11:08) runny nose, sneezing Do you need a note to return to daycare/school/sports/work: Yes HPI HPI Comments History of Present Illness Details 28 Y/O Male patient who presents to walk in clinic with c/o dizziness and lightheadedness for a week now. Reports feeling his ears blocked and hearing muffled noises. Denies vision changes. Denies head trauma. Denies headaches, nausea, or vomiting. 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[employer] Cognitive needs: No Hearing needs: No Vision needs: No Review of Systems Const All systems reviewed & are unremarkable except as noted in HPI and below Physical Exam Vital Signs: Last Vital Signs Temp 97.9 F 09/15/23 11:08 Pulse 76 09/15/23 11:08 BP 120/70 09/15/23 11:08 Pulse Ox 98 09/15/23 11:08 Oxygen Delivery Method Room Air 09/15/23 11:08 Const General: comfortable and no acute distress Nutritional Appearance: well nourished Orientation/consciousness: patient oriented x3 HEENT Head: Yes normocephalic Ears: external ears normal and TM abnormal bulging, with fluid behind the TM bilateral and retracted General nose exam: Abnormal mucous membranes and turbinates present boggy and erythematous Face and sinus: Yes sinuses nontender Mouth: moist mucous membranes Throat: Yes posterior oropharynx normal Resp Effort & Inspection: normal respiratory effort and able to speak in complete sentences Auscultation: clear to auscultation bilaterally, no crackles, no rales, no rhonchi and no wheezes Cardio Rate: regular rate Rhythm: regular rhythm Neuro General: patient oriented x3, gait normal and moves all extremities Psych Speech and movement: Normal speech and movement present Assessment & Plan Assessment & Plan (1) Dizziness: Code(s): R42 - Dizziness and giddiness Plan: Hydrate well with plenty of water Change position slowly Meclizine as prescribed (2) Fluid level behind tympanic membrane of both ears: Code(s): H65.93 - Unspecified nonsuppurative otitis media, bilateral Plan: Zyrtec 2 tabs in AM and 2 Tabs in the PM Flonase Daily Medications: New meclizine 25 mg PO BID PRN 60 tabs 0RF dizziness R42 - Dizziness and giddiness cetirizine (Zyrtec) TAKE DIRECTED BY MD 10 mg PO DAILY PRN 90 tabs 0RF allergy symptoms H65.93 - Unspecified nonsuppurative otitis media, bilateral, R42 - Dizziness and giddiness fluticasone furoate 27.5 mcg/actuation (Flonase Sensimist) into each nostril 1 spray intranasal DAILY 9.1 mL 0RF H65.93 - Unspecified nonsuppurative otitis media, bilateral Coding Level of Care Code Est Pt Level 3 (49947) Diagnoses Dizziness R42 Fluid level behind tympanic membrane of both ears H65.93 Time Spent (min) 15
[2023-09-15 11:08] VITALS: BP 120/70; PULSE 76; TEMP 36.6; O2SAT 98
== END 2023-09-15 11:46 | disposition home or self-care (01) ==
PROVIDERS: PCP Internal Medicine; Visit Provider Nurse Practitioner Family
DX: R42 Dizziness and giddiness (principal); H65.93 Unspecified nonsuppurative otitis media, bilateral
CPT/HCPCS: 99213

== ENCOUNTER 2024-03-22 10:07 | Outpatient (AMB) | payer BC, SELFPAY ==
[2024-03-22 10:09] VITALS: BP 120/82; PULSE 87; TEMP 36.3; O2SAT 98; BMI 30.4
--- NOTE | 2024-03-22 10:09 | MHC.PC.OV ---
Vital Signs 03/22/24 10:09 Height 5 ft 6 in Weight 188 lb 6 oz BMI 30.4 BP 120/82 Blood Pressure Location Lt brachial Position Sitting Pulse 87 Pulse Source Pulse Oximeter Temp 97.4 F Temp Source Oral Pulse Oximetry (%) 98 Oxygen Delivery Method Room Air Intake Visit Reasons: pe Skull Splitter Required: No Accompanied by: Self / Same As Patient Allergies environmental allergies Allergy (Intermediate, Uncoded 03/22/24 10:29) runny nose, sneezing Medication List - Last Reconciled 03/22/24 by ERIKA Garcia cetirizine (Zyrtec) 10 mg PO DAILY PRN fluticasone furoate 27.5 mcg/actuation (Flonase Sensimist) 1 spray intranasal DAILY meclizine 25 mg PO BID PRN Tobacco use date assessed: 03/22/24 Dental Screening Dental Screen Date: 03/22/24 Did you have a dental visit in the last 12 months?: No Did you have a dental problem in the last 6 months where you did not have access to dental care?: No Was dental information given to patient?: Patient has dentist HPI pe HPI Details The patient is a 28-year-old male with past medical history of depression, ilio-inguinal strain Patient is presenting today for his annual PE-his last labs done on 03/20/23 Patient reports that he is doing well today Reports that he started back therapy and that has been going well-Insurance issues in the past caused him to have to find a new therapist He denies chest pain, shortness of breath, heart palpitation, and dizziness He also denies any change in bowel movement and denies urinary symptoms Reports that he is up-to-date and all immunization [facility] Medical History Left testicular torsion (~2007) Surgical History History of testicular surgery (~2007) Family History Mother High blood pressure Arthritis Father Diverticulitis Other Mental health problem Social History Housing: House Alcohol intake: current Alcohol intake frequency: a few times a month Patient Tobacco Use Status: Never used Tobacco e-Cigarette/Vaping Use: Never Used Second Hand Smoke Exposure: No service: No Current occupational status: employed Current occupation: [employer] Cognitive needs: No Hearing needs: No Vision needs: No Questionnaire PHQ-9 Over the last 2 weeks, how often have you been bothered by any of the following problems? 1. Little interest or pleasure in doing things: several days 2. Feeling down, depressed, or hopeless: several days 3. Trouble falling or staying asleep, or sleeping too much: not at all 4. Feeling tired or having little energy: several days 5. Poor appetite or overeating: several days 6. Feeling bad about yourself - or that you are a failure or have let yourself or your family down: several days 7. Trouble concentrating on things, such as reading the newspaper or watching television: not at all 8. Moving or speaking so slowly that other people could have noticed. Or the opposite - being so fidgety or restless that you have been moving around a lot more than usual: not at all 9. Thoughts that you would be better off or of hurting yourself in some way: not at all Total score: 5 Depression Screening Interpretation: Positive Depression Screening Follow-up: Existing condition and Community Mental Health Worker F/U Depression Screening Done: Yes 10099 - PHQ-9 Billing: Yes Source: Developed by Drs. Jesu Figueroa, Mer Li, Alan Kovacs and colleagues, with an educational melanie from [employer]. Thrive Questionnaire Date Thrive assessed: 03/22/24 I am a: Patient What is your living situation today?: I have a steady place to live Within the past 12 months, did the food you bought not last and you didn't have the money to get more?: Never true Within the past 12 months, did you worry whether your food would run out before you got money to buy more?: Never true Do you have trouble paying for medicines?: No Do you have trouble getting transportation to medical appointments?: No Do you have trouble paying your heating and electricity bill?: No Do you have trouble taking care of your child, family member or friend?: No Do you have trouble with day-to-day activities such as bathing, preparing meals, shopping, managing finances, etc.?: No Are you currently unemployed and looking for a job?: No Are you interested in more education?: Yes Please select the resources that you would like help with: None Currently or been in a relationship where the following occur: No concerns reported THRIVE Score: 0 AUDIT C Alcohol Use Questionnaire (AUDIT-C) 1. How often do you have a drink containing alcohol?: 2-4 times a month 2. How many drinks containing alcohol do you have on a typical day when you are drinking?: 5 or 6 3. How often do you have six or more drinks on one occasion?: Less than monthly Total Score: 5 Score Reviewed/Action Taken: Yes COOPER-7 AMB Questionnaire COOPER-7 Date COOPER - 7 assessed: 03/22/24 Feeling nervous, anxious, or on edge: 1 = Several days Not being able to stop or control worryin = Several days Worrying too much about different things: 1 = Several days Trouble relaxin = More than half the days Being so restless that it is hard to sit still: 0 = Not at all Becoming easily annoyed or irritable: 2 = More than half the days Feeling afraid as if something awful might happen: 0 = Not at all Total COOPER-7 score (0-4 normal; 5-9 mild; 10-14 moderate; 15-21 severe): 7 Source: Developed by Drs. Jesu Figueroa, Mer Li, Alan Kovacs and colleagues, with an educational melanie from [employer]. COOPER-7 Assessment Billing COOPER-7 Assessment Tool: COOPER-7 Assessment 24972 Review of Systems Const Details: Denies chills, Denies fatigue, Denies fever(s), Denies headache(s) and Denies weakness HEENT Denies change in vision, Denies dizziness, Denies headache(s), Denies hearing loss, Denies nasal congestion, Denies sinus pain, Denies sinus pressure and Denies sore throat Card Denies chest pain, Denies lightheadedness, Denies dyspnea and Denies other (palpitations) Resp Denies cough, Denies dyspnea and Denies wheezing GI Denies abdominal pain, Denies melena, Denies hematochezia, Denies change in bowel habits, Denies dyspepsia and Denies nausea Denies hematuria and Denies dysuria Musc Denies abnormal gait, Denies myalgias, Denies arthralgias, Denies numbness and Denies tingling Skin/Breast Denies rash, Denies unusual bruising and Denies wounds Neuro Denies abnormal gait, Denies dizziness, Denies headache(s), Denies memory loss, Denies numbness, Denies Sensory deficit (Neuro), Denies tingling and Denies weakness Psych Denies anxiety, Denies depression and Denies memory loss Endo Denies cold intolerance, Denies fatigue, Denies heat intolerance, Denies polydipsia and Denies polyuria Antony/Lymph Denies easy bleeding and Denies easy bruising Aller/Immun Denies wheezing Physical exam (Primary Care) Vital Signs: Last Vital Signs Temp 97.4 F 03/22/24 10:09 Pulse 87 03/22/24 10:09 BP 120/82 03/22/24 10:09 Pulse Ox 98 03/22/24 10:09 Oxygen Delivery Method Room Air 03/22/24 10:09 BMI result Body Mass Index 30.4 Tobacco/Smoking Status: Tobacco use Status Tobacco use date assessed 03/22/24 03/22/24 10:14 Patient Tobacco Use Status Never used Tobacco 03/22/24 10:09 e-Cigarette/Vaping Use Never Used 03/22/24 10:09 PHQ-9: PHQ-9 Score PHQ-9: Total score 5 03/22/24 10:51 Depression Screening Interpretation: Positive Depression Screening Follow-up: Existing condition and Community Mental Health Worker F/U Thrive Assessment: Date of Thrive Assessment Date Thrive assessed 03/22/24 03/22/24 10:14 Currently or been in a relationship where the following occur: No concerns reported Const Other: General: no acute distress, well developed, alert and awake Nutritional Appearance: well nourished Orientation/consciousness: patient oriented x3 HENMT Head: Yes normocephalic and Yes atraumatic Ears: hearing grossly normal bilaterally and TM's normal bilaterally General nose exam: Normal external nose present and Normal nares present Mouth: Normal oral and palatal mucosa present and moist mucous membranes Teeth and gingiva: dentition normal Throat: Yes oropharynx normal Eyes Pupils: Equal, round and reactive pupils present and Pupil accommodation reflex normal EOM: EOMs intact bilaterally Neck Neck: Yes normal visual inspection, Yes no lymphadenopathy and Yes trachea midline Thyroid: Thyroid normal Carotids: no bruits Lymphatic: no lymphadenopathy noted Chest Chest palpation & inspection: normal inspection of the chest Resp Effort & Inspection: normal respiratory effort Auscultation: clear to auscultation bilaterally Cardio Rate: regular rate Rhythm: regular rhythm Heart sounds: S1 normal heart sound present, S2 normal heart sound present, no gallops, no murmurs and no rubs Bruits: no abdominal aortic bruits and no carotid bruits GI Palpation (GI): No Abdominal aortic bruit present, Soft to palpation, nontender, No hepatosplenomegaly present and No Rebound tenderness present Auscultation: normal bowel sounds General: Yes no CVA tenderness Back/Spine/Pelvis Back: no CVA tenderness Cervical Spine: cervical ROM normal and No Cervical spine tenderness Thoracic/Lumbar Spine: thoraco-lumbar ROM normal, No pain with thoraco-lumbar ROM, No thoracic spinal tenderness and No lumbar spinal tenderness Skin General: warm and dry. Normal skin color. Normal skin turgor Lesions: no lesions Rashes: no rashes Trauma: no lacerations or abrasions Wounds: no wounds Nails: normal Neuro General: patient oriented x3, gait normal and CN's II-XI intact bilaterally Cranial nerves: Yes Equal, round and reactive pupils present Cognition (Neuro): normal cognition Gait exam (Neuro): Normal gait present Motor exam (neuro): 5/5 motor strength present throughout Sensory Exam: No Sensory deficit (Neuro) Deep tendon reflexes (DTR's): Right patellar reflex intensity grade: 2+ and Left patellar reflex intensity grade: 2+ Extrem General: Yes normal to inspection, No edema and No calf tenderness Psych Appearance: grossly normal Affect: normal affect Attitude: cooperative Thought process: Normal thought process present Coding Level of Care Code Est Pt Prev Care [id number]([id number]) Diagnoses Annual physical exam Z00.00 Episode of recurrent major depressive disorder, unspecified depression episode severity F33.9 Depression Type: major depressive disorder Major depression recurrence: recurrent Active/Remission status: currently active Major depression episode severity: unspecified Obesity (BMI 30.0-34.9) E66.811 Additional Codes COOPER-7 Assessment Billing - COOPER-7 Assessment Tool: COOPER-7 Assessment 52870 ([id number]) PHQ-9 - 12027 - PHQ-9 Billing: Yes ([id number]) Assessment & Plan Assessment & Plan (1) Annual physical exam: Code(s): Z00.00 - Encounter for general adult medical examination without abnormal findings Category: Medical Plan: Patient is up-to-date on immunizations Last blood work was in 2022 CPE labs ordered-patient to get done as soon as possible for a complete evaluation. (2) Depression: Code(s): F32.A - Depression, unspecified Category: Medical Qualifiers: Depression Type: major depressive disorder Major depression recurrence: recurrent Active/Remission status: currently active Major depression episode severity: unspecified Qualified Code(s): F33.9 - Major depressive disorder, recurrent, unspecified Plan: phq-9 score of 5 The patient is currently in therapy and reporting positive effect; declined pharmacotherapy Continue therapy/counseling as scheduled (3) Obesity (BMI 30.0-34.9): Code(s): E66.811 - Obesity, class 1 Category: Medical Plan: Diet/exercise discussed in detail Encouraged to exercise for at least 30 minutes a day/5 days a week Healthy eating discussed. Encouraged to eat fruits/vegetables, protein-fish/baked chicken, and to avoid salty/fried foods, sweets, caffeine and carbohydrates. Encouraged to increase water intake 6-8 glasses a day Plan Return in 1 year for annual physical or sooner for any concerns. Orders: Orders Complete Blood Count Auto Diff 1 Year E66.3 - Overweight, F32.A - Depression, unspecified, Z00.00 - Encounter for general adult medical examination without abnormal findings Lipid Panel 1 Year E66.3 - Overweight, F32.A - Depression, unspecified, Z00.00 - Encounter for general adult medical examination without abnormal findings TSH reflex Free T4 1 Year E66.3 - Overweight, F32.A - Depression, unspecified, Z00.00 - Encounter for general adult medical examination without abnormal findings UA CC w/rflx Micro + Cult 1 Year E66.3 - Overweight, F32.A - Depression, unspecified, Z00.00 - Encounter for general adult medical examination without abnormal findings Vitamin D 25-OH Total 1 Year E66.3 - Overweight, F32.A - Depression, unspecified, Z00.00 - Encounter for general adult medical examination without abnormal findings Glucose Fasting 1 Year E66.3 - Overweight, F32.A - Depression, unspecified, Z00.00 - Encounter for general adult medical examination without abnormal findings Complete Blood Count Auto Diff 03/22/24 E66.811 - Obesity, class 1, F32.A - Depression, unspecified, Z00.00 - Encounter for general adult medical examination without abnormal findings Glucose Fasting 03/22/24 E66.811 - Obesity, class 1, F32.A - Depression, unspecified, Z00.00 - Encounter for general adult medical examination without abnormal findings TSH reflex Free T4 03/22/24 E66.811 - Obesity, class 1, F32.A - Depression, unspecified, Z00.00 - Encounter for general adult medical examination without abnormal findings Vitamin D 25-OH Total 03/22/24 E66.811 - Obesity, class 1, F32.A - Depression, unspecified, Z00.00 - Encounter for general adult medical examination without abnormal findings Comprehensive Emerson. Panel Fast 1 Year E66.3 - Overweight, F32.A - Depression, unspecified, Z00.00 - Encounter for general adult medical examination without abnormal findings Comprehensive Emerson. Panel Fast 03/22/24 E66.811 - Obesity, class 1, F32.A - Depression, unspecified, Z00.00 - Encounter for general adult medical examination without abnormal findings Lipid Panel 03/22/24 E66.811 - Obesity, class 1, F32.A - Depression, unspecified, Z00.00 - Encounter for general adult medical examination without abnormal findings Free T4 (Free Thyroxine) 03/22/24 E66.811 - Obesity, class 1, F32.A - Depression, unspecified, Z00.00 - Encounter for general adult medical examination without abnormal findings
== END 2024-03-22 10:56 | disposition home or self-care (01) ==
PROVIDERS: PCP Internal Medicine; Visit Provider Internal Medicine
DX: Z00.00 Encounter for general adult medical examination without abnormal findings (principal); F33.9 Major depressive disorder, recurrent, unspecified; E66.811 Obesity, class 1; Z68.30 Body mass index [BMI] 30.0-30.9, adult

== ENCOUNTER → 2024-03-22 10:07 | Outpatient (BNVA) | payer BC, SELFPAY | PROVIDERS: PCP Internal Medicine; Visit Provider Internal Medicine | DX: Z00.00 Encounter for general adult medical examination without abnormal findings (principal); F33.9 Major depressive disorder, recurrent, unspecified; E66.811 Obesity, class 1; Z68.30 Body mass index [BMI] 30.0-30.9, adult | CPT/HCPCS: 96127 ==

== ENCOUNTER 2024-10-15 17:46 | Emergency (ER) | payer OTHER, SELFPAY ==
[2024-10-15 17:50] VITALS: BP 120/0; PULSE 102; O2SAT 97
[2024-10-15 18:07] VITALS: BP 120/78; PULSE 84; RESP 16; TEMP 36.4; O2SAT 98; BMI 29.7
--- NOTE | 2024-10-15 18:44 | ED.MEDCLEAR ---
HPI - Medical Clearance General Chief complaint: Medical Clearance Stated complaint: evals Time Seen by Provider: 10/15/24 18:04 Related Information Previous Rx's ?Medication ?Instructions ?Recorded cetirizine 10 mg tablet (Zyrtec) 10 mg PO DAILY PRN allergy 09/15/23 symptoms #90 tabs fluticasone furoate 27.5 1 spray intranasal DAILY #9.1 mL 09/15/23 mcg/actuation nasal spray,suspension (Flonase Sensimist) meclizine 25 mg tablet 25 mg PO BID PRN dizziness #60 tabs 09/15/23 valacyclovir 1 gram tablet 1,000 mg PO Q12H 7 days #14 tabs 08/25/24 diazepam 5 mg tablet (Valium) 5 mg PO TID PRN anxiety 3 days #9 10/15/24 tabs Allergies Allergy/AdvReac Type Severity Reaction Status Date / Time No Known Allergies Allergy Verified 10/15/24 18:08 [facility], [facility] Past Medical History Medical History Left testicular torsion (~2007) Surgical History History of testicular surgery (~2007) Family History Family History Mother High blood pressure Arthritis Father Diverticulitis Other Mental health problem Social History Social History Housing: House Alcohol intake: current Alcohol intake frequency: a few times a month Patient Tobacco Use Status: Never used Tobacco e-Cigarette/Vaping Use: Never Used Second Hand Smoke Exposure: No service: No Current occupational status: employed Current occupation: police - [employer] Cognitive needs: No Hearing needs: No Vision needs: No Physical Exam Vital Signs: Vital Signs: Last Vital Signs Temp 97.6 F 10/15/24 18:07 Pulse 84 10/15/24 18:07 Resp 16 10/15/24 18:07 BP 120/78 10/15/24 18:07 Pulse Ox 98 10/15/24 18:07 O2 Del Method Room Air 10/15/24 18:07 BMI result Body Mass Index 29.7 Medications Administered Discontinued Medications Generic Name Dose Route Start Last Admin Trade Name Freq PRN Reason Stop Dose Admin Diazepam 4 mg 10/15/24 18:29 10/15/24 18:40 Diazepam 2 Mg Tablet PO 10/15/24 18:30 4 mg ONCE ONE Administration Discharge Plan Discharge Clinical Impression: Examination and observation following work accident Patient Disposition: Home, Self-Care Additional Instructions: I am clearing patient to return to duty on 10/20/2024, 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 Officer was prescribed benzodiazepines in the emergency department and for the next 3 days after the incident to help with this stressful event at hopefully prevent some of the PTSD associated with this event. As far as use of Valium, you can use half a pill every 6-8 hours, before bedtime you can use a full pill 5 mg, do not mix with alcohol. Any thoughts of harming self or harming others, any other concerns please come back to emergency department for re-evaluation. Prescriptions: New diazepam [Valium] 5 mg tablet 5 mg PO TID PRN (Reason: anxiety) 3 Days Qty: 9 0RF No Action valacyclovir 1 gram tablet 1,000 mg PO Q12H 7 Days Qty: 14 0RF meclizine 25 mg tablet 25 mg PO BID PRN (Reason: dizziness) Qty: 60 0RF cetirizine [Zyrtec] 10 mg tablet 10 mg PO DAILY PRN (Reason: allergy symptoms) Qty: 90 0RF Rx Instructions: TAKE DIRECTED BY MD Nair Sensimist 27.5 mcg/actuation spray,suspension 1 spray intranasal DAILY Qty: 9.1 0RF Rx Instructions: into each nostril Stand Alone Forms: Work/School Release Print Language: Fijian
--- NOTE | 2024-10-15 19:08 | PC.NURSE ---
This nurse was not prrimary nurse reviewed discharge instructions with pt. pt verbalized understanding, no sign of distress upon discharge.
[2024-10-15 19:10] VITALS: BP 120/78; PULSE 84; RESP 16; TEMP 36.4; O2SAT 98
== END 2024-10-15 19:12 | disposition home or self-care (01) ==
PROVIDERS: Emergency Provider Emergency Medicine; PCP Internal Medicine
DX: Z04.3 Encounter for examination and observation following other accident (principal)
CPT/HCPCS: 99282; 99283

== ENCOUNTER → 2024-10-21 11:11 | Outpatient (BNVA) | payer OTHER, SELFPAY | PROVIDERS: PCP Internal Medicine; Visit Provider Physician Assistant Medical | DX: F43.0 Acute stress reaction (principal); F41.9 Anxiety disorder, unspecified; Z04.2 Encounter for examination and observation following work accident | CPT/HCPCS: 99203 ==

== ENCOUNTER → 2024-10-29 07:59 | Outpatient (BNVA) | payer OTHER, SELFPAY | PROVIDERS: PCP Internal Medicine; Visit Provider Internal Medicine | DX: F43.0 Acute stress reaction (principal) | CPT/HCPCS: 99213 ==

== ENCOUNTER → 2024-11-12 07:59 | Outpatient (BNVA) | payer OTHER, SELFPAY | PROVIDERS: PCP Internal Medicine; Visit Provider Internal Medicine | DX: F43.0 Acute stress reaction (principal) | CPT/HCPCS: 99213 ==

== ENCOUNTER → 2024-11-26 08:27 | Outpatient (BNVA) | payer OTHER, SELFPAY | PROVIDERS: PCP Internal Medicine; Visit Provider Internal Medicine | DX: F43.0 Acute stress reaction (principal); F41.9 Anxiety disorder, unspecified; Z04.2 Encounter for examination and observation following work accident | CPT/HCPCS: 99213 ==

== ENCOUNTER → 2024-12-10 08:30 | Outpatient (BNVA) | payer OTHER, SELFPAY | PROVIDERS: PCP Internal Medicine; Visit Provider Internal Medicine | DX: F43.0 Acute stress reaction (principal); F41.9 Anxiety disorder, unspecified; Z04.2 Encounter for examination and observation following work accident | CPT/HCPCS: 99213 ==

== ENCOUNTER 2024-12-16 15:25 | Outpatient (AMB) | payer OTHER, SELFPAY ==
--- NOTE | 2024-12-16 15:28 | MHC.PC.OV ---
Vital Signs 12/16/24 15:29 Height 5 ft 6 in Weight 192 lb BMI 31.0 BP 122/68 Blood Pressure Location Lt brachial Position Sitting Pulse 64 Pulse Source Pulse Oximeter Temp 97.1 F Temp Source Temporal Artery Scan Pulse Oximetry (%) 99 Oxygen Delivery Method Room Air Intake Visit Reasons: Pain left abdomen Intake Note: Patient is here to follow up on Pain in left abdomen. Air Traffic Coordinator Required: No Mail Agent: Not Required per policy Accompanied by: Self / Same As Patient Allergies No Known Allergies Allergy (Verified 12/16/24 15:29) Medication List - Last Reconciled 12/16/24 by Lissette Ling MD cetirizine (Zyrtec) 10 mg PO DAILY PRN Tobacco use date assessed: 12/16/24 Dental Screening Dental Screen Date: 12/16/24 Did you have a dental visit in the last 12 months?: Yes Did you have a dental problem in the last 6 months where you did not have access to dental care?: No Was dental information given to patient?: Patient has dentist HPI HPI Comments History of Present Illness Details The patient is a 29-year-old male presenting with left lower abdominal pain which radiated to his back when he bends over. The patient reports intermittent pain in his left lower abdomen. The pain improved with increased water intake. He denies any urinary or bowel symptoms. He denies fever, chills, SOB or chest pain. He reported increased flatulence and I told the patient about his fatty liver diagnosis and advised on lifestyle modificazations. [facility] Medical History Left testicular torsion (~2007) Surgical History History of testicular surgery (~2007) Family History Mother High blood pressure Arthritis Father Diverticulitis Other Mental health problem Social History Housing: House Alcohol intake: current Alcohol intake frequency: a few times a month Patient Tobacco Use Status: Never used Tobacco e-Cigarette/Vaping Use: Never Used Second Hand Smoke Exposure: No service: No Current occupational status: employed Current occupation: police - [employer] Cognitive needs: No Hearing needs: No Vision needs: Yes (Glasses) Questionnaire PHQ-9 Over the last 2 weeks, how often have you been bothered by any of the following problems? 1. Little interest or pleasure in doing things: several days 2. Feeling down, depressed, or hopeless: not at all 3. Trouble falling or staying asleep, or sleeping too much: not at all 4. Feeling tired or having little energy: not at all 5. Poor appetite or overeating: not at all 6. Feeling bad about yourself - or that you are a failure or have let yourself or your family down: several days 7. Trouble concentrating on things, such as reading the newspaper or watching television: several days 8. Moving or speaking so slowly that other people could have noticed. Or the opposite - being so fidgety or restless that you have been moving around a lot more than usual: not at all 9. Thoughts that you would be better off or of hurting yourself in some way: not at all Total score: 3 Depression Screening Interpretation: Positive Depression Screening Done: Yes Source: Developed by Drs. Jesu Figueroa, Mer Li, Alan Kovacs and colleagues, with an educational melanie from [employer]. Thrive Questionnaire Date Thrive assessed: 12/16/24 I am a: Patient What is your living situation today?: I have a steady place to live Within the past 12 months, did the food you bought not last and you didn't have the money to get more?: Never true Within the past 12 months, did you worry whether your food would run out before you got money to buy more?: Never true Do you have trouble paying for medicines?: No Do you have trouble getting transportation to medical appointments?: No Do you have trouble paying your heating and electricity bill?: No Do you have trouble taking care of your child, family member or friend?: No Do you have trouble with day-to-day activities such as bathing, preparing meals, shopping, managing finances, etc.?: No Are you currently unemployed and looking for a job?: No Are you interested in more education?: I choose not to answer this question Please select the resources that you would like help with: None Currently or been in a relationship where the following occur: No concerns reported THRIVE Score: 0 AUDIT C Alcohol Use Questionnaire (AUDIT-C) 1. How often do you have a drink containing alcohol?: Monthly or less 2. How many drinks containing alcohol do you have on a typical day when you are drinking?: 1 or 2 3. How often do you have six or more drinks on one occasion?: Less than monthly Total Score: 2 COOPER-7 AMB Questionnaire COOPER-7 Date COOPER - 7 assessed: 12/16/24 Feeling nervous, anxious, or on edge: 1 = Several days Not being able to stop or control worryin = Not at all Worrying too much about different things: 0 = Not at all Trouble relaxin = Several days Being so restless that it is hard to sit still: 1 = Several days Becoming easily annoyed or irritable: 2 = More than half the days Feeling afraid as if something awful might happen: 0 = Not at all Total COOPER-7 score (0-4 normal; 5-9 mild; 10-14 moderate; 15-21 severe): 5 Source: Developed by Drs. Jesu Figueroa, Mer Li, Alan Kovacs and colleagues, with an educational melanie from [employer]. Review of Systems Const Details: Positives besides what was mentioned in HPI are in BOLD Constitutional: No Weight Change, No Fever, No Chills, No Night Sweats, No Fatigue, No Malaise ENT/Mouth: No Hearing Changes, No Ear Pain, No Nasal Congestion, No Sinus Pain, No Hoarseness, No sore throat, No Rhinorrhea, No Swallowing Difficulty Eyes: No Eye Pain, No Swelling, No Redness, No Foreign Body, No Discharge, No Vision Changes Cardiovascular: No Chest Pain, No SOB, No PND, No Dyspnea on Exertion, No Orthopnea, No Claudication, No Edema, No Palpitations Respiratory: No Cough, No Sputum, No Wheezing, No Smoke Exposure, No Dyspnea Gastrointestinal: No Nausea, No Vomiting, No Diarrhea, No Constipation, No Pain, No Heartburn, No Anorexia, No Dysphagia, No Hematochezia, No Melena, No Flatulence, No Jaundice Genitourinary: No Dysmenorrhea, No DUB, No Dyspareunia, No Dysuria, No Urinary Frequency, No Hematuria, No Urinary Incontinence, No Urgency, No Flank Pain, No Urinary Flow Changes, No Hesitancy Musculoskeletal: No Arthralgias, No Myalgias, No Joint Swelling, No Joint Stiffness, No Back Pain, No Neck Pain, No Injury History Skin: No Skin Lesions, No Pruritis, No Hair Changes, No Breast/Skin Changes, No Nipple Discharge Neuro: No Weakness, No Numbness, No Paresthesias, No Loss of Consciousness, No Syncope, No Dizziness, No Headache, No Coordination Changes, No Recent Falls Psych: No Anxiety/Panic, No Depression, No Insomnia, No Personality Changes, No Delusions, No Rumination, No SI/HI/AH/VH, No Social Issues, No Memory Changes, No Violence/Abuse Hx., No Eating Concerns Heme/Lymph: No Bruising, No Bleeding, No Transfusions History, No Lymphadenopathy Endocrine: No Polyuria, No Polydipsia, No Temperature Intolerance Physical exam (Primary Care) Vital Signs: Last Vital Signs Temp 97.1 F 12/16/24 15:29 Pulse 64 12/16/24 15:29 BP 122/68 12/16/24 15:29 Pulse Ox 99 12/16/24 15:29 Oxygen Delivery Method Room Air 12/16/24 15:29 BMI result Body Mass Index 31.0 Tobacco/Smoking Status: Tobacco use Status Tobacco use date assessed 12/16/24 12/16/24 15:34 Patient Tobacco Use Status Never used Tobacco 12/16/24 15:34 e-Cigarette/Vaping Use Never Used 12/16/24 15:34 PHQ-9: PHQ-9 Score PHQ-9: Total score 3 12/16/24 15:34 Depression Screening Interpretation: Positive Thrive Assessment: Date of Thrive Assessment Date Thrive assessed 12/16/24 12/16/24 15:34 Currently or been in a relationship where the following occur: No concerns reported Const Other: Pertinent findings are in BOLD GENERAL APPEARANCE NAD, activity normal for age, well developed/ well nourished, no cyanosis, pallor, or diaphoresis. EYES lids/conjunctiva normal. EARS/NOSE/THROAT Mucous membranes moist, nares normal, lips/teeth normal uvula midline without oral pharyngeal erythema, exudate or swelling TMs normal bilaterally. No lymphangitis/lymphedema. HEAD/NECK normocephalic atraumatic, no facial trauma, neck is supple. RESPIRATORY respiratory effort normal, speaks in full sentences, no tripod position, no accessory muscle use. Lungs clear to auscultation without rhonchi, wheezes, rales CARDIAC Regular rate and rhythm, no edema. ABDOMINAL Soft, ND/NT. No evidence of fluid wave. No pulsatile masses on exam, rebound tenderness, Farley sign or pain over Mcburney's point. MUSCLES/EXTREMITIES No abnormal range of motion, no swelling. SKIN Warm, pink and dry. No rashes, dermatoses, petechiae or lesions. NEUROLOGICAL Speech is clear and appropriate. Normal level of consciousness. Gait and coordination are normal. 5/5 strength in all extremities. PSYCH Normal mood and affect. Judgement/competence is appropriate Coding Level of Care Code Est Pt Level 4 (32187) Diagnoses Abdominal pain R10.9 Fatty liver K76.0 Assessment & Plan Assessment & Plan (1) Abdominal pain: Code(s): R10.9 - Unspecified abdominal pain Category: Medical Plan: Pain is more likely GI related radiating to the back. We darwin prescribe the patient fibers to help with alleviating the symptoms. If this does not help we can consider further W-U. (2) Fatty liver: Code(s): K76.0 - Fatty (change of) liver, not elsewhere classified Category: Medical Plan: Lifestyle modifications including reducing sugars, dairy, red meat and bread. F-U with PCP. Plan I discussed with the patient that the musculoskeletal pain might be related to gastrointestinal issues and suggested starting with fiber supplements to see if there is any improvement. If symptoms persist, we may consider imaging studies. We also talked about managing anxiety with buspirone and monitoring for any changes in symptoms. The patient was advised to increase water intake and reduce caffeine to help with urinary frequency and gastrointestinal symptoms. Dietary modifications were recommended to address flatulence and fatty liver, including reducing dairy and processed sugars. Medications: New psyllium husk (Daily Fiber (psyllium-aspartame)) 1 packet PO BID 54 ea 3RF Discontinued diazepam (Valium) Discontinued Reason: Patient no longer taking 5 mg PO TID 3 days PRN 9 tabs 0RF anxiety meclizine Discontinued Reason: Patient no longer taking 25 mg PO BID PRN 60 tabs 0RF dizziness R42 - Dizziness and giddiness fluticasone furoate 27.5 mcg/actuation (Flonase Sensimist) into each nostril Discontinued Reason: Patient no longer taking 1 spray intranasal DAILY 9.1 mL 0RF H65.93 - Unspecified nonsuppurative otitis media, bilateral valacyclovir Discontinued Reason: Patient no longer taking 1,000 mg PO Q12H 7 days 14 tabs 0RF diazepam take 1/2 tab during day and 1 tab at bed Discontinued Reason: Patient no longer taking 5 mg PO BID 14 tabs 0RF anxiety trazodone start with 1/2 tab for first 2-3 night then can increase to 1 full tab if tolerated well Discontinued Reason: Patient no longer taking 50 mg PO BEDTIME PRN 14 tabs 0RF insomnia
[2024-12-16 15:29] VITALS: BP 122/68; PULSE 64; TEMP 36.2; O2SAT 99; BMI 31.0
== END 2024-12-16 15:54 | disposition home or self-care (01) ==
PROVIDERS: PCP Internal Medicine; Visit Provider Internal Medicine
DX: R10.9 Unspecified abdominal pain (principal); K76.0 Fatty (change of) liver, not elsewhere classified

== ENCOUNTER → 2024-12-16 15:25 | Outpatient (BNVA) | payer OTHER, SELFPAY | PROVIDERS: PCP Internal Medicine; Visit Provider Internal Medicine | DX: R10.32 Left lower quadrant pain (principal); K76.0 Fatty (change of) liver, not elsewhere classified; Z13.31 Encounter for screening for depression; Z13.39 Encounter for screening examination for other mental health and behavioral disorders | CPT/HCPCS: 96127; 99212 ==

== ENCOUNTER → 2024-12-31 08:29 | Outpatient (BNVA) | payer OTHER, SELFPAY | PROVIDERS: PCP Internal Medicine; Visit Provider Internal Medicine | DX: F43.0 Acute stress reaction (principal); F41.9 Anxiety disorder, unspecified; Z04.2 Encounter for examination and observation following work accident | CPT/HCPCS: 99213 ==

== ENCOUNTER → 2025-02-02 09:09 | Outpatient (BNVA) | payer OTHER, SELFPAY | PROVIDERS: PCP Internal Medicine; Visit Provider Internal Medicine | DX: F43.0 Acute stress reaction (principal); F41.9 Anxiety disorder, unspecified; F43.12 Post-traumatic stress disorder, chronic | CPT/HCPCS: 99213 ==

== ENCOUNTER → 2025-02-16 08:25 | Outpatient (BNVA) | payer OTHER, SELFPAY | PROVIDERS: PCP Internal Medicine; Visit Provider Internal Medicine | DX: F43.0 Acute stress reaction (principal); F41.9 Anxiety disorder, unspecified; Z02.79 Encounter for issue of other medical certificate | CPT/HCPCS: 99213 ==